=== PATIENT | male | born 1945 | race Caucasian/White ===

== ENCOUNTER 2017-08-29 10:17 | Emergency (ER) | payer BC ==
[~2017-08-29] VITALS: Ht 177.8 cm; Wt 71.7 kg
[2017-08-29 11:10] VITALS: BP 150/93
[2017-08-29] MEDS ORDERED: NEOMYC-POLYM-DEX5 ML OPHTHALMIC (11:10)
[2017-08-29] MEDS ORDERED: MOBIC7.5 MG PO (11:10)
== END 2017-08-29 11:14 | disposition home or self-care (01) ==
LOC: ER 10:17
DX: S05.02XA Injury of conjunctiva and corneal abrasion without foreign body, left eye, initial encounter (principal); H11.32 Conjunctival hemorrhage, left eye; Z88.2 Allergy status to sulfonamides; Z88.5 Allergy status to narcotic agent; W50.0XXA Accidental hit or strike by another person, initial encounter; Y93.89 Activity, other specified; Y92.89 Other specified places as the place of occurrence of the external cause; Y99.8 Other external cause status

== ENCOUNTER 2019-11-18 14:07 | Emergency (ER) | payer BC ==
[~2019-11-18] VITALS: Ht 177.8 cm; Wt 68.0 kg
[~2019-11-18 14:07] MED LIST: ASA5UEC PO; ATORVASTATIN CA40 MG PO; COZAAR 25 MG TA25 M1 PO; EFFIENT10 MG PO; KEFLEX500 M1 PO; MOBIC7.5 MG PO; NEOMYC-POLYM-DEX5 ML OPHTHALMIC; TOPROL XL25 MG PO; TRIMETHOPRIM /P10 M1 OPHTHALMIC
[2019-11-18 15:20] LABS: URINE BILIRUBIN NEGATIVE (Negative); URINE BLOOD TRACE (Negative); URINE CLARITY CLEAR; URINE COLOR YELLOW; URINE GLUCOSE-RANDOM* NEGATIVE (Negative); URINE KETONES NEGATIVE (Negative); URINE LEUKOCYTES-REFLEX NEGATIVE (Negative); URINE NITRITE-REFLEX NEGATIVE (Negative); URINE PROTEIN (DIPSTICK) NEGATIVE (Negative); URINE UROBILINOGEN 0.2 E.U./dl (0.2-1.0)
[2019-11-18 16:40] LABS: BASOPHILS 0.8 % (0.0-2.0); EOSINOPHILS 0.6 % (0.0-3.0); HEMATOCRIT 42.1 % (42.0-52.0); HEMOGLOBIN 14.4 gm/dL (14.0-18.0); LYMPHOCYTES 12.1 % (24.0-44.0); MCH 29.7 pg (26.0-34.0); MCHC 34.1 g/dL (28.0-37.0); MCV 87.2 fL (80.0-100.0); MONOCYTES 9.5 % (1.0-8.0); PLATELET COUNT 156 thou/uL (150-400); RBC 4.83 mil/uL (4.50-6.00); WBC 7.8 thou/uL (4.0-11.0)
[2019-11-18 16:51] LABS: CALCIUM 9.6 mg/dL (8.5-10.1); CREATININE 0.9 mg/dL (0.7-1.3); POTASSIUM 4.3 mmol/L (3.5-5.1)
[2019-11-18 17:30] VITALS: BP 145/74
== END 2019-11-18 17:31 | disposition home or self-care (01) ==
LOC: ER 14:07
PROVIDERS: Emergency Medicine
DX: R33.9 Retention of urine, unspecified (principal); Z87.891 Personal history of nicotine dependence; Z88.5 Allergy status to narcotic agent; Z88.2 Allergy status to sulfonamides

== ENCOUNTER → 2019-11-24 | Outpatient (CLI) | payer BC | LOC: SJCVC 12:59 | PROVIDERS: ATTEND Internal Medicine Cardiovascular Disease | DX: R94.31 Abnormal electrocardiogram [ECG] [EKG] (principal); I25.10 Atherosclerotic heart disease of native coronary artery without angina pectoris; I10 Essential (primary) hypertension; E78.00 Pure hypercholesterolemia, unspecified; Z82.49 Family history of ischemic heart disease and other diseases of the circulatory system; Z79.82 Long term (current) use of aspirin; Z79.899 Other long term (current) drug therapy; Z87.891 Personal history of nicotine dependence ==

== ENCOUNTER → 2019-12-06 | Outpatient (CLI) | payer BC | LOC: SJCVCIMAG 11-30 13:47 | PROVIDERS: ATTEND Internal Medicine Cardiovascular Disease | DX: R00.0 Tachycardia, unspecified (principal); I25.10 Atherosclerotic heart disease of native coronary artery without angina pectoris; R53.83 Other fatigue; Z85.46 Personal history of malignant neoplasm of prostate; Z79.82 Long term (current) use of aspirin; Z79.899 Other long term (current) drug therapy; Z88.5 Allergy status to narcotic agent; Z88.2 Allergy status to sulfonamides; Z98.61 Coronary angioplasty status ==

== ENCOUNTER → 2020-04-29 | Outpatient (CLI) | payer BC | LOC: SJCVCIMAG 08:55 | PROVIDERS: ATTEND Internal Medicine Cardiovascular Disease | DX: I08.8 Other rheumatic multiple valve diseases (principal); I25.10 Atherosclerotic heart disease of native coronary artery without angina pectoris; I25.5 Ischemic cardiomyopathy; Z87.891 Personal history of nicotine dependence ==

== ENCOUNTER 2020-06-28 06:29 | Observation (INO) | payer BC ==
[2020-06-28] VITALS (8 sets, daily range): BP systolic 149–162; BP diastolic 72–84
[~2020-06-28] VITALS: Ht 177.8 cm; Wt 68.0 kg
[2020-06-28] MEDS ORDERED: ASA81BEC PO (07:37)
[2020-06-28] MEDS ORDERED: EDARBI40 MG PO (07:39)
[2020-06-28] MEDS ORDERED: EFFIENT10 MG PO (12:47)
--- NOTE | 2020-06-28 19:22 | NUR ---
PT CARE ASSUMED AT 0700. ASSESSMENTS CHARTED. MEDICATIONS CHARTED. RFA IV. UP AD FOSTER. TOILET. HH DIET. SINUS ANUSHA. RT GROIN, MYNX, MID. HEMOSTASIS AT 1207, BEDREST COMPLETE UPON PLACEMENT.
[2020-06-29 00:11] VITALS: BP 133/90
[2020-06-29 03:53] VITALS: BP 136/73
--- NOTE | 2020-06-29 04:05 | NUR ---
Assumed pt care at 1900. Pt is alert and oriented. No sign of distress noted in pt. Denies pain. Groin site intact. Assessment completed and documented. Pt is ambulatory. No acute events overnight. Continue to monitor. Discharge pending. No further needs at this time.
[2020-06-29 04:41] LABS: HEMATOCRIT 39.3 % (42.0-52.0); HEMOGLOBIN 12.9 gm/dL (14.0-18.0); MCH 28.6 pg (26.0-34.0); MCHC 32.8 g/dL (28.0-37.0); RBC 4.52 mil/uL (4.50-6.00); RDW 14.6 % (10.5-14.5)
[2020-06-29 05:08] LABS: ALBUMIN 3.1 g/dL (3.4-5.0); CALCIUM 8.7 mg/dL (8.5-10.1); CREATININE 1.1 mg/dL (0.7-1.3); POTASSIUM 3.8 mmol/L (3.5-5.1); TOTAL BILIRUBIN 0.3 mg/dL (0.2-1.0); TOTAL PROTEIN 6.4 g/dL (6.4-8.2)
[2020-06-29 05:11] LABS: TROPONIN-I 1.73 ng/mL (<0.06)
[2020-06-29 08:00] VITALS: BP 135/87
[2020-06-29 10:32] VITALS: BP 135/87
[2020-06-29 11:11] VITALS: BP 149/74
[2020-06-29 12:00] VITALS: BP 136/77
--- NOTE | 2020-06-30 14:07 | EKG ---
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1945 Requested By: Jorge Madera Order Number: [id number] MD: Tremayne Milan Measurements Intervals [place] Rate: 52 P: 55 NE: 172 QRS: -34 QRSD: 106 T: -23 QT: 451 QTc: 420 Interpretive Statements Sinus bradycardia Abnormal R-wave progression, early transition Inferior infarct, age indeterminate Compared to ECG 04/16/2018 08:01:[address] and T wave abnormality is less pronounced Electronically Signed On 06-30-2020 14:07:09 CELL LINER by Tremayne Milan [email or web address] <ELECTRONICALLY SIGNED> By: Tremayne Milan MD, [facility] 06/30/20 1407 0708 0708 Tremayne Milan MD, [facility] /EPI
--- NOTE | 2020-07-02 16:09 | CATHLAB ---
[facility] [place] [address] INVASIVE PROCEDURE REPORT Name: ISAI ROB Room #: 204-P [facility] Zach Swan#: [id number] Admission: 06/28/20 Attend Phys: Jorge Madera MD, Discharge: 06/29/20 Date of : 47 Report #: [id number] REPORT FOR: cc: Osvaldo Alvarado James A. DO Mancuso, Gerald M. MD [facility] ~ APPROVED REPORT Study performed: 06/28/2020 10:25:08 Patient Details Patient Status: Out-Patient Room #: The patient is a 74 year-old male Event Personnel Jorge Madera Socket Puller, Fozia Tate RTR Monitor, Maricarmen Olvera RTR Scrub, Maegan Díaz RN clipper and turner Performed Art Access - R femoral artery* Left Heart Cath w/or w/o Coronaries [id number] [facility] Renal Bilateral Peripheral Angiography [id number] CVRENALBIL JOAQUIN Place w/wo Plasty Single OM 329951 Hemostasis w/ Mynx 29604 Initial Mod Sed Same Phys/QHP Gr5y 487218 73254 Mod Sed Same Phys/QHP Ea 249605 Indication Positive stress test Procedure Narrative The Right Groin^ was infiltrated with 1% Lidocaine subcutaneous anesthesia. A PINNACLE 6FR TIF Sheath #[id number] sheath was inserted into the RFA^. Coronary angiography was performed using coronary diagnostic catheters. The right coronary system was accessed and visualized with a JR4 catheter. The left coronary system was accessed and visualized with a JL4 catheter. The left ventricle was accessed and visualized with a PIGTAIL catheter. Left ventriculogram was performed in 30 degree projection. Closure device was deployed with a 6 Fr MYNXGRIP 6/7F #[id number]. The patient tolerated the procedure well and there were no complications associated with the procedure. There was no hematoma. Intraoperative Conscious Sedation Sedation start time: 11:19 Case end Time: [facility] [address] [place] [address] INVASIVE PROCEDURE REPORT Name: ISAI ROB Cosme Room #: 204-P [facility]#: [id number] Admission: 06/28/20 Attend Phys: Jorge Madera, Discharge: 06/29/20 Date of : 47 Report #: [id number] 12:07 Fentanyl 75 mcg Versed 1.5 mg Fluoro Time: 6.60 minutes Dose: DAP 4455.90 cGycm2 600 mGy Contrast Type and Amount: Visipaque 160 ml Hemodynamics The aortic pressure is 158/79 mmHg with a mean of 111 mmHg. The left ventricular pressure is 168/7 mmHg with a mean of mmHg. The left ventricular end diastolic pressure is 24 mmHg. PCI Technique Lesion Percutaneous coronary intervention was performed on the mid circumflex artery segment. A 6F EBU3.75 Guide Catheter was used to engage the ostium. A .014 LUGE 182CM Interventional Guidewire was used to cross the lesion. BALLOON DILATION A Balloon catheter Sprinter OTW 2.5 x 15 #[id number] was inserted and inflated up to 12.00atm for 25seconds. Additional Inflation: 18.00atm for 20seconds. STENT DEPLOYMENT A drug-eluting stent RESOLUTE KAI OTW 2.5 X 18 #[id number] was inserted and inflated up to 10.00atm for 29seconds. Conclusion #1.Successful PTCA stent of the proximal mid circumflex complex OM branch 80 to 90% eccentric lesion with placement of a 2.5 x 18 resolute kai MONICA grade III flow 0% residual #2 distal left main has an eccentric lesion of 40% giving rise to LAD and circumflex mildly calcified. #3 the LAD is moderately calcified proximally with eccentric lesions of 50 to 60% after a diagonal takeoff diffuse distal disease. #4 circumflex OM proximal circumflex is eccentric lesion of 30 to 40% off the left main and giving rise to the OM branch that was stented up above. #5 dominant right coronary with mild irregularities to the PDA and NARAYAN well preserved. No significant occlusive disease. A mid distal RCA stent previously placed is widely patent with minimal restenosis. #6 selective injection of single bilateral renal arteries reveals mild ostial disease bilaterally 20 to 30%. Recommendations and plan: Continue aggressive risk factor [address] [address] INVASIVE PROCEDURE REPORT Name: ISAI ROB Room #: 204-P [facility] IN M.R.#: [id number] Admission: 06/28/20 Attend Phys: Jorge Madera, Discharge: 06/29/20 Date of : 47 Report #: [id number] modification. Dual antiplatelet therapy has been initiated. Patient to CCU to follow post coronary stent protocol. <ELECTRONICALLY SIGNED> By: Jorge Madera MD, FAC 07/02/20 1608 1608 1608 Jorge Madera MD, FACC /INF
== END 2020-06-29 13:28 | disposition home or self-care (01) ==
LOC: CATH 06:29 → 2N 16:41 → CATH 16:42 → 2N 16:43
PROVIDERS: ADMIT Internal Medicine Cardiovascular Disease; ATTEND Internal Medicine Cardiovascular Disease
DX: I25.10 Atherosclerotic heart disease of native coronary artery without angina pectoris (principal); I10 Essential (primary) hypertension; E78.5 Hyperlipidemia, unspecified; Z79.82 Long term (current) use of aspirin; Z79.899 Other long term (current) drug therapy

== ENCOUNTER 2021-05-05 06:09 | Emergency (ER) | payer BC ==
[~2021-05-05] VITALS: Ht 177.8 cm; Wt 69.4 kg
[~2021-05-05 06:09] MED LIST changes: +ASA81BEC PO; +EDARBI40 MG PO
[2021-05-05 06:52] VITALS: BP 148/76
[2021-05-05] MEDS ORDERED: NAPROSYN500 MG PO (07:01)
[2021-05-05] MEDS ORDERED: FLEXERIL PO (07:01)
== END 2021-05-05 08:04 | disposition home or self-care (01) ==
LOC: ER 06:09
DX: S33.5XXA Sprain of ligaments of lumbar spine, initial encounter (principal); I10 Essential (primary) hypertension; I25.2 Old myocardial infarction; Z85.46 Personal history of malignant neoplasm of prostate; Z79.82 Long term (current) use of aspirin; Z79.899 Other long term (current) drug therapy; Z88.5 Allergy status to narcotic agent; Z88.2 Allergy status to sulfonamides; Z87.891 Personal history of nicotine dependence; V89.0XXA Person injured in unspecified motor-vehicle accident, nontraffic, initial encounter; Y93.89 Activity, other specified; Y92.89 Other specified places as the place of occurrence of the external cause; Y99.8 Other external cause status